=== PATIENT | male | born 1990 ===

== ENCOUNTER 2018-07-18 23:14 | Emergency (ER) | payer SELFPAY ==
[2018-07-18 23:20] VITALS: BP 125/62; PULSE 67; RESP 16; TEMP 97.1; O2SAT 100
[2018-07-19] MEDS ORDERED: Oxycodone/Acetaminophen 5/325 mg Tab PO ONE (00:35)
--- NOTE | 2018-07-19 00:37 | ED PDOC ---
HPI: Back Time Seen by Provider: 07/18/18 23:51 Chief Complaint (Nursing): Back Pain Chief Complaint (Provider): back pain History Per: Patient History/Exam Limitations: no limitations Onset/Duration Of Symptoms: Hrs (2) Current Symptoms Are (Timing): Still Present Additional Complaint(s): 28 y/o male brought in by EMS for evaluation of low back pain x 2 hours. Patie nt states he was doing deadlifts at the gym with approximately 100lb bar gonzalez and felt a "crack" in his lower back while lifting up. Patient states he felt immediate pain and has been unable to walk since then. Denies numbness/weakness lower extremities, bowel/bladder incontinence. No medications taken for relief thus far Past Medical History Reviewed: Historical Data, Nursing Documentation, Vital Signs Vital Signs: Last Vital Signs Temp 97.1 F L 07/18/18 23:16 Pulse 67 07/18/18 23:16 Resp 16 07/18/18 23:16 BP 125/62 07/18/18 23:16 Pulse Ox 100 07/18/18 23:16 Primary Care Provider: FAMILY PROVIDER,NO - Medical History PMH: Asthma - Surgical History Surgical History: No Surg Hx - Family History Family History: States: Unknown Family Hx - Immunization History Hx Tetanus Toxoid Vaccination: No Hx Influenza Vaccination: No Hx Pneumococcal Vaccination: No - Home Medications Home Medications: Ambulatory Orders Medication Instructions Recorded Albuterol 0.083% [Albuterol 3 ml IH QID #100 neb 05/16/16 Sulfate 3 Ml] Albuterol Sulfate [Proair Hfa] 2 puff IH QID PRN #1 inh 05/16/16 Budesonide [Pulmicort] 2 ml IH BID #100 ampul.neb 05/16/16 Mask, Face [Nebulizer Aerosol Mask 1 dev XX PRN #1 dev 05/16/16 Adult] Nebulizer [Compact Compressor 1 dev XX PRN PRN #1 dev 05/16/16 Nebulizer] Prednisone [Deltasone] 2 tab PO DAILY #20 tablet 05/16/16 Umeclidinium Brm/Vilanterol Tr 1 puff IH DAILY #1 blst.w.dev 05/16/16 [Anoro Ellipta 62.5-25 Mcg INH] Cyclobenzaprine [Cyclobenzaprine 10 mg PO BID PRN #14 tab 07/19/18 HCl] Lidocaine 5% [Lidoderm] 1 patch TOP DAILY PRN #7 patch 07/19/18 Naproxen [Naprosyn] 500 mg PO Q12 PRN #14 tablet 07/19/18 traMADol [Ultram] 50 mg PO Q8 PRN #10 tab 07/19/18 - Allergies Allergies/Adverse Reactions: Allergies Allergy/AdvReac Type Severity Reaction Status Date / Time No Known Allergies Allergy Verified 05/16/16 01:31 Review of Systems ROS Statement: Except As Marked, All Systems Reviewed And Found Negative Musculoskeletal: Positive for: Back Pain Physical Exam - Reviewed Nursing Documentation Reviewed: Yes Vital Signs Reviewed: Yes - Physical Exam Appears: Positive for: Well, Non-toxic, No Acute Distress Back: Positive for: Vertebral Tenderness (upper lspine without bony deformity), Decreased ROM (seconcary to pain at lower back), Muscle Spasm (left lspine parav ertebral tenderness). Negative for: L CVA Tenderness, R CVA Tenderness Extremity: Positive for: Normal ROM Neurological/Psych: Positive for: Awake, Alert, Oriented (x3). Negative for: Motor/Sensory Deficits - ECG O2 Sat by Pulse Oximetry: 100 - Other Rad xray lspine X-Ray: Viewed By Me X-Ray Interpretation: no acute findings - Progress ED Course And Treament: -lspine xray -Toradol IM -flexeril PO -percocet PO 3:30 On re-eval, patient states pain improved; able to sit up on his own but states he cannot stand Morphine IM ordered 4:45 Patient standing and moving extremities slowly. No neuro deficits noted Patient/ educated on findings, discharged with rx Tramadol, Naproxen, Flexeril, Lidoderm Advised warm compresses, rest Follow up with PMD within 2-3 days REturn precautions given Disposition - Clinical Impression Clinical Impression: Low back pain - Patient ED Disposition Is Patient to be Admitted: No Counseled Patient/Family Regarding: Studies Performed, Diagnosis, Need For Followup, Rx Given - Disposition Referrals: [facility] [Outside] Disposition: Routine/Home Disposition Time: 04:51 Condition: IMPROVED Prescriptions: Cyclobenzaprine [Cyclobenzaprine HCl] 10 mg PO BID PRN #14 tab PRN Reason: Muscle Spasm Lidocaine 5% [Lidoderm] 1 patch TOP DAILY PRN #7 patch PRN Reason: Pain, Mild (1-3) Naproxen [Naprosyn] 500 mg PO Q12 PRN #14 tablet PRN Reason: Pain, Moderate (4-7) traMADol [Ultram] 50 mg PO Q8 PRN #10 tab PRN Reason: Pain, Severe (8-10) Instructions: Low Back Pain in Adults Print Language: ALGERIAN
[2018-07-19] MEDS ORDERED: Oxycodone/Acetaminophen 5/325 mg Tab ONE (00:53)
[2018-07-19] MEDS ORDERED: Lidocaine 5% Patch TD STA (04:50)
--- NOTE | 2018-07-19 10:16 | RAD ---
Date of service: 07/19/2018 PROCEDURE: Radiographs of the Lumbar Spine. HISTORY: injury, pain COMPARISON: No prior. TECHNIQUE: 5 views obtained. FINDINGS: BONES: There is straightening of the normal lumbar lordosis.. No listhesis. No fracture. DISC SPACES: Unremarkable. OTHER FINDINGS: None. IMPRESSION: Straightening of the normal lumbar lordosis. Otherwise unremarkable.
== END 2018-07-19 04:59 | disposition home or self-care (01) ==
LOC: H.ER 23:14
DX: M54.5 Low back pain (principal); J45.909 Unspecified asthma, uncomplicated
CPT/HCPCS: 72100; 96372; 99283; J1885; J2270